=== PATIENT | male | born 1935 | race Caucasian/White ===

== ENCOUNTER 2018-06-04 21:09 | Inpatient (IN) | payer MEDICARE, OTHER ==
[~2018-06-04] VITALS: Ht 175.3 cm; Wt 64.1 kg
--- NOTE | 2018-06-04 21:15 | NUR ---
PT RECEIVED FROM [facility] WITH HEPARIN AT 840 UNITS AN HOUR
[2018-06-04] MEDS ORDERED: HEPARIN 25,000 UNITS/500ML PMX 500 ML ONE (21:20)
[2018-06-04] MEDS ORDERED: SODIUM CHLORIDE FLUSH 10ML SYR IVF ONE (21:30)
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
--- NOTE | 2018-06-04 22:15 | NUR ---
ADMITTING MD AT
--- NOTE | 2018-06-04 22:48 | NUR ---
REPORT GIVEN TO KHUSHI CERDA
[2018-06-04] MEDS ORDERED: SODIUM CHLORIDE 0.9% 1,000 ML IV SCH (23:05)
--- NOTE | 2018-06-04 23:13 | NUR ---
PT ADMITTED TO FLOOR WITH TECH AND ON MONITOR, HEPARIN INFUSING
[2018-06-04 23:27] VITALS: BP 140/72
[2018-06-04] MEDS ORDERED: POLYETHYLENE GLYCOL 17 GM PACKET PO PRN (23:30)
[2018-06-04] MEDS ORDERED: ACETAMINOPHEN 325 MG TABLET PO PRN (23:30)
[2018-06-04] MEDS ORDERED: ENOXAPARIN 60 MG/0.6 ML SQ ONE (23:30)
[2018-06-04] MEDS ORDERED: ONDANSETRON 2MG/ML, 2ML IVPush PRN (23:30)
[2018-06-04 23:52] LABS: BASOPHILS # (AUTO) 0.04 x10^3/uL (0-0.1); BASOPHILS % (AUTO) 1 % (0-1); EOSINOPHILS # (AUTO) 0.01 x10^3/uL (0-0.4); EOSINOPHILS % (AUTO) 0 % (1-7); LYMPHOCYTES # (AUTO) 0.98 x10^3/uL (1-3.4); LYMPHOCYTES % (AUTO) 12 % (22-44); MD NO; MEAN CORPUSCULAR HEMOGLOBIN 30.4 pg (27.5-34.5); MEAN CORPUSCULAR VOLUME 92.1 fL (81-97); MEAN PLATELET VOLUME 9.9 fL (7.4-10.4); MONOCYTES # (AUTO) 0.55 x10^3/uL (0.2-0.8); MONOCYTES % (AUTO) 7 % (2-9); NEUTROPHILS # (AUTO) 6.32 x10^3/uL (1.8-6.8); NEUTROPHILS % (AUTO) 80 % (42-75); PLATELET COUNT 252 x10^3/uL (130-400); RED BLOOD COUNT 3.65 x10^6/uL (4.38-5.82); RED CELL DISTRIBUTION WIDTH 14.6 % (9.4-14.8)
[2018-06-05 00:04] LABS: ALBUMIN 3.5 g/dL (3.4-5.0); ANION GAP 7 mmol/L (5-15); CALCIUM 8.8 mg/dL (8.5-10.1); CHLORIDE 104 mmol/L (98-107)
[2018-06-05 00:05] LABS: INTERNATIONAL NORMALIZED RATIO 1.11 (0.93-1.1); PROTHROMBIN TIME 11.7 Seconds (9.6-11.5)
[2018-06-05 00:10] LABS: CREATININE 1.83 mg/dL (0.7-1.3)
[2018-06-05 00:59] VITALS: BP 135/72
[2018-06-05] MEDS ORDERED: SODIUM CHLORIDE 0.9% 1,000ML IVBOLUS ONE (03:00)
[2018-06-05 04:00] VITALS: BP 74/35
[2018-06-05] MEDS ORDERED: DOPAMINE/D5W PMX 250 ML IV PRN (04:00)
[2018-06-05] MEDS ORDERED: NITROGLYCERIN 5 MG/ML, 10ML ONE (04:53)
[2018-06-05] MEDS ORDERED: VERAPAMIL 2.5 MG/ML, 2ML ONE (04:53)
[2018-06-05] MEDS ORDERED: LIDOCAINE 1%, 20ML ONE (04:53)
[2018-06-05] MEDS ORDERED: HEPARIN 1,000 UNITS/ML, 10ML ONE (04:53)
[2018-06-05] MEDS ORDERED: MIDAZOLAM 1 MG/ML, 5ML ONE (04:53)
[2018-06-05] MEDS ORDERED: FENTANYL PF 100 MCG/2ML ONE (04:53)
[2018-06-05] MEDS ORDERED: BIVALIRUDIN 250 MG ONE (04:54)
[2018-06-05] MEDS ORDERED: TICAGRELOR 90 MG TABLET ONE (04:54)
[2018-06-05] MEDS ORDERED: ONDANSETRON 2MG/ML, 2ML IVPush ONE (05:00)
[2018-06-05] MEDS ORDERED: ASPIRIN 325 MG TABLET EC PO SCH (06:00)
[2018-06-05 07:23] LABS: MEAN CORPUSCULAR HEMOGLOBIN 29.8 pg (27.5-34.5); MEAN CORPUSCULAR HGB CONC 32.2 g/dL (33.2-36.2); MEAN CORPUSCULAR VOLUME 92.5 fL (81-97); MEAN PLATELET VOLUME 10.4 fL (7.4-10.4); PLATELET COUNT 233 x10^3/uL (130-400); RED BLOOD COUNT 3.42 x10^6/uL (4.38-5.82); RED CELL DISTRIBUTION WIDTH 14.9 % (9.4-14.8)
[2018-06-05 07:28] LABS: ANION GAP 7 mmol/L (5-15); CALCIUM 8.3 mg/dL (8.5-10.1); CHLORIDE 108 mmol/L (98-107); CHOLESTEROL, TOTAL 115 mg/dL (140-239); CREATININE 1.71 mg/dL (0.7-1.3); TRIGLYCERIDES 45 mg/dL (50-200); VLDL CHOLESTEROL 9 mg/dL (0-25)
[2018-06-05 07:33] LABS: CHOL/HDL RATIO 2.9; HDL CHOL % 34 % (26-37); HDL CHOLESTEROL (DIRECT) 39 mg/dL (40-60); LDL CHOLESTEROL,CALCULATED 67 mg/dL (54-169); LDL/HDL RATIO 1.7 (0.5-3.0)
[2018-06-05 07:41] LABS: BASOPHILS % (AUTO) 0 % (0-1); EOSINOPHILS # (AUTO) 0.01 x10^3/uL (0-0.4); EOSINOPHILS % (AUTO) 0 % (1-7); LYMPHOCYTES % (AUTO) 6 % (22-44); MD SCAN; MONOCYTES # (AUTO) 0.54 x10^3/uL (0.2-0.8); MONOCYTES % (AUTO) 6 % (2-9); NEUTROPHILS # (AUTO) 8.69 x10^3/uL (1.8-6.8); NEUTROPHILS % (AUTO) 88 % (42-75)
[2018-06-05] MEDS: SODIUM CHLORIDE 0.9% 1,000 ML IV SCH ×2 (08:38→21:18)
[2018-06-05] MEDS: INSULIN LISPRO 100 UNITS/ML, PEN SQ-INSULIN SCH ×4 (08:38→21:17)
[2018-06-05 08:49] LABS: HEMOGLOBIN A1C 7.8 % (4.2-6.3)
[2018-06-05 20:10] VITALS: BP 119/67
[2018-06-05] MEDS: TICAGRELOR 90 MG TABLET PO SCH (21:17)
[2018-06-05] MEDS: ATORVASTATIN 80 MG TABLET PO SCH (21:17)
[2018-06-06 01:52] VITALS: BP 116/57
[2018-06-06] MEDS: ASPIRIN 81 MG TABLET EC PO SCH (06:16)
[2018-06-06] MEDS: INSULIN LISPRO 100 UNITS/ML, PEN SQ-INSULIN SCH ×4 (07:00→20:49)
[2018-06-06 07:07] LABS: ANION GAP 8 mmol/L (5-15); CALCIUM 8.3 mg/dL (8.5-10.1); CHLORIDE 110 mmol/L (98-107)
[2018-06-06 07:09] LABS: CREATININE 1.17 mg/dL (0.7-1.3)
[2018-06-06 07:55] VITALS: BP 121/65
[2018-06-06] MEDS: TICAGRELOR 90 MG TABLET PO SCH ×2 (08:27→20:36)
[2018-06-06] MEDS ORDERED: TICAGRELOR 90 MG TABLET PO SCH (09:00)
[2018-06-06] MEDS: SODIUM CHLORIDE 0.9% 1,000 ML IV SCH (11:22)
[2018-06-06 13:55] VITALS: BP 122/65
[2018-06-06 19:40] VITALS: BP 137/72
[2018-06-06] MEDS: ATORVASTATIN 80 MG TABLET PO SCH (20:36)
[2018-06-07 01:25] VITALS: BP 137/69
[2018-06-07] MEDS: SODIUM CHLORIDE 0.9% 1,000 ML IV SCH (03:14)
[2018-06-07] MEDS: ASPIRIN 81 MG TABLET EC PO SCH (05:09)
[2018-06-07] MEDS ORDERED: METOPROLOL TARTRATE 25 MG TABLET PO SCH (06:00)
[2018-06-07] MEDS: INSULIN LISPRO 100 UNITS/ML, PEN SQ-INSULIN SCH ×2 (07:00→11:00)
[2018-06-07] MEDS: TICAGRELOR 90 MG TABLET PO SCH (08:48)
[2018-06-07 08:54] VITALS: BP 168/76
[2018-06-07] MEDS ORDERED: LISINOPRIL 5 MG TABLET PO SCH (10:30)
[2018-06-07] MEDS ORDERED: [UNRECOGNIZED DRUG - OTHER] PO (10:37)
[2018-06-07] MEDS ORDERED: METO25TA2 PO (11:37)
[2018-06-07] MEDS ORDERED: ASPI81TA45 PO (11:37)
[2018-06-07] MEDS ORDERED: LISI5TAB7 PO (11:37)
[2018-06-07] MEDS ORDERED: TICA90TA PO (11:37)
[2018-06-07] MEDS ORDERED: ATOR-2 PO (11:43)
== END 2018-06-07 12:10 | disposition home or self-care (01) | DRG 246 ==
LOC: ED 21:52 → EDIP 21:59 → INTOOBSV 21:59 → SUATTDRO 22:14 → 5SO 23:15 → CCU 06-05 03:30 → OBSVTOIN 06-05 07:58 → 5SO 06-05 18:12
PROVIDERS: ADMIT Hospitalist; ATTEND Hospitalist
PROC: 027035Z Dilation of Coronary Artery, One Artery with Two Drug-eluting Intraluminal Devices, Percutaneous Approach (ICD-10-PCS; principal; 2018-06-05)
PROC: 4A023N7 Measurement of Cardiac Sampling and Pressure, Left Heart, Percutaneous Approach (ICD-10-PCS; 2018-06-05)
PROC: B2111ZZ Fluoroscopy of Multiple Coronary Arteries using Low Osmolar Contrast (ICD-10-PCS; 2018-06-05)
DX: I21.4 Non-ST elevation (NSTEMI) myocardial infarction (principal); N17.0 Acute kidney failure with tubular necrosis; I44.2 Atrioventricular block, complete; E11.9 Type 2 diabetes mellitus without complications; I25.10 Atherosclerotic heart disease of native coronary artery without angina pectoris; I25.5 Ischemic cardiomyopathy; Z60.2 Problems related to living alone; L98.9 Disorder of the skin and subcutaneous tissue, unspecified; Z79.4 Long term (current) use of insulin; I25.2 Old myocardial infarction; Z87.891 Personal history of nicotine dependence; Z89.512 Acquired absence of left leg below knee; Z91.14 Patient's other noncompliance with medication regimen
CPT/HCPCS: 33210; 36415; 80048; 80061; 82040; 82962; 83036; 83735; 84100; 84484; 85025; 85520; 85610; 85730; 87081; 93005; 93306; 93454; 99156; 99157; C1760; C1769; C1894; C9600; G0378; J0583; J1644; J1650; J2250; J2405; J3010; J3490; C1725; C1874; C1887; J1815; J7030; Q9967